=== PATIENT | male | born 1995 | race Two or more races ===

== ENCOUNTER 2017-04-30 16:21 | Emergency (ER) | payer BC ==
[~2017-04-30] VITALS: Ht 185.4 cm; Wt 133.8 kg
[2017-04-30 17:27] LABS: Basophils # (auto) 0.1 uL; Basophils % (auto) 0.5 % (0.0-2.0); Eosinophils # (auto) 0.1 uL; Hematocrit 44.6 % (41.0-53.0); Lymphocytes # (auto) 2.7 uL; Lymphocytes % (auto) 25.4 % (10.0-50.0); Mean Corpuscular Hemoglobin 30.3 pg (28.0-32.0); Mean Corpuscular Hgb Conc. 33.6 g/dL (32.0-36.0); Mean Platelet Volume 9.7 fL (6.9-10.8); Monocytes % (auto) 9.9 % (0.0-12.0); Neutrophils # (auto) 6.7 uL; Neutrophils % (auto) 63.2 % (37.0-80.0); Nucleated Red Blood Cells % 0.1 %; Platelet Count (auto) 267 10^3/uL (140-450); Red Cell Distribution Width 13.5 % (11.8-14.3); White Blood Cell 10.6 10^3/uL (4.4-10.8)
[2017-04-30 17:47] LABS: BUN/Creatinine Ratio 16.3; Bilirubin, Total 0.3 mg/dL (0.2-1.0); Calcium 8.7 mg/dL (8.5-10.1); Potassium 3.7 mmol/L (3.5-5.1); Total Protein 8.1 g/dL (6.4-8.2)
[2017-04-30 19:18] VITALS: BP 128/83
== END 2017-04-30 20:13 | disposition home or self-care (01) ==
LOC: ER 16:21
DX: R07.89 Other chest pain (principal); F12.10 Cannabis abuse, uncomplicated
CPT/HCPCS: 36415; 71020; 80053; 84443; 84484; 85025; 93005

== ENCOUNTER → 2017-12-26 | Outpatient (CLI) | payer BC | END | disposition home or self-care (01) | LOC: XYW 10:34 | PROVIDERS: ATTEND Internal Medicine | DX: R07.9 Chest pain, unspecified (principal) | CPT/HCPCS: 93306 ==

== ENCOUNTER → 2018-10-30 | Outpatient (CLI) | payer BC ==
[2018-10-30 12:10] LABS: Basophils # (auto) 0.1 uL; Basophils % (auto) 0.5 % (0.0-2.0); Eosinophils # (auto) 0.2 uL; Eosinophils % (auto) 1.7 % (0.0-7.0); Hematocrit 47.6 % (41.0-53.0); Hemoglobin 15.7 g/dL (13.5-17.5); Lymphocytes # (auto) 2.3 uL; Lymphocytes % (auto) 17.8 % (10.0-50.0); Mean Corpuscular Hemoglobin 29.2 pg (28.0-32.0); Mean Corpuscular Hgb Conc. 33.1 g/dL (32.0-36.0); Mean Corpuscular Volume 88.2 fL (80.0-100.0); Monocytes # (auto) 0.6 uL; Monocytes % (auto) 4.4 % (0.0-12.0); Neutrophils # (auto) 9.7 uL; Neutrophils % (auto) 75.6 % (37.0-80.0); Nucleated Red Blood Cells % 0.1 %; Platelet Count (auto) 295 10^3/uL (140-450); Red Blood Cells 5.39 10^6/uL (4.5-5.90); White Blood Cell 12.8 10^3/uL (4.4-10.8)
[2018-10-30 12:16] LABS: Albumin 3.9 g/dL (3.4-5.0); Calcium 9.5 mg/dL (8.5-10.1); Potassium 3.9 mmol/L (3.5-5.1)
[2018-10-30 12:23] LABS: BUN/Creatinine Ratio 15.1; Bilirubin, Total 0.4 mg/dL (0.2-1.0); Total Protein 8.9 g/dL (6.4-8.2)
== END | disposition home or self-care (01) ==
LOC: LAB 11:05
PROVIDERS: ATTEND Internal Medicine
DX: Z00.00 Encounter for general adult medical examination without abnormal findings (principal); E66.01 Morbid (severe) obesity due to excess calories; K21.0 Gastro-esophageal reflux disease with esophagitis; R94.5 Abnormal results of liver function studies
CPT/HCPCS: 36415; 80053; 80061; 83036; 84443; 85025; 86695; 86696

== ENCOUNTER 2019-12-06 21:37 | Emergency (ER) | payer BC, MEDICAID ==
[~2019-12-06] VITALS: Ht 188 cm; Wt 163.3 kg
[2019-12-06] MEDS ORDERED: HYDROmorphone HCL 2 MG/ML VL IV ONE (22:30)
[2019-12-07] MEDS ORDERED: HYDROmorphone HCL 2 MG/ML VL IV ONE (00:30)
[2019-12-07 02:07] LABS: Basophils # (auto) 0 10 ^3/uL (0-0.2); Basophils % (auto) 0.2 % (0.0-2.0); Eosinophils # (auto) 0 10 ^3/uL (0-0.8); Hematocrit 41.9 % (41.0-53.0); Hemoglobin 13.8 g/dL (13.5-17.5); Lymphocytes # (auto) 1.1 10 ^3/uL (0.4-5.4); Lymphocytes % (auto) 5.2 % (10.0-50.0); Mean Corpuscular Hemoglobin 28.9 pg (28.0-32.0); Mean Corpuscular Volume 87.7 fL (80.0-100.0); Monocytes % (auto) 4.9 % (0.0-12.0); Neutrophils # (auto) 18.6 10 ^3/uL (1.6-8.6); Neutrophils % (auto) 89.7 % (37.0-80.0); Platelet Count (auto) 215 10^3/uL (140-450); Red Blood Cells 4.78 10^6/uL (4.5-5.90); Red Cell Distribution Width 14.3 % (11.8-14.3); White Blood Cell 20.7 10^3/uL (4.4-10.8)
[2019-12-07] MEDS ORDERED: LORazepam 2MG/ML-1ML VIAL IV ONE (02:15)
[2019-12-07] MEDS ORDERED: ONDANSETRON HCL 4 MG/2 ML VIAL IV ONE (02:15)
[2019-12-07] MEDS ORDERED: MORPHINE SULFATE 4 MG/ML SYR/VIAL IV ONE ×2 (02:15→07:15)
[2019-12-07 02:28] LABS: Albumin 3.4 g/dL (3.4-5.0); BUN/Creatinine Ratio 15.6; Calcium 8.4 mg/dL (8.5-10.1)
[2019-12-07 02:30] LABS: INR 1.13 (0.9-1.15); Partial Thromboplastin Time 29.9 sec (23.64-32.05)
[2019-12-07 02:37] LABS: Bilirubin, Total 0.3 mg/dL (0.2-1.0); Total Protein 7.5 g/dL (6.4-8.2)
[2019-12-07 07:15] VITALS: BP 143/85
== END 2019-12-07 07:40 | disposition short-term general hospital (02) ==
LOC: EDBD 21:37 → ER 21:37
DX: S82.832A Other fracture of upper and lower end of left fibula, initial encounter for closed fracture (principal); S82.302A Unspecified fracture of lower end of left tibia, initial encounter for closed fracture; S20.212A Contusion of left front wall of thorax, initial encounter; V86.59XA Driver of other special all-terrain or other off-road motor vehicle injured in nontraffic accident, initial encounter; Y93.I9 Activity, other involving external motion; Y92.410 Unspecified street and highway as the place of occurrence of the external cause; Y99.8 Other external cause status
CPT/HCPCS: 36415; 72128; 72131; 73600; 80053; 85025; 85610; 85730; 96374; 96375; 96376; 99285; J1170; J7030; 71250; J2405

== ENCOUNTER 2020-08-31 17:54 | Inpatient (IN) | payer BC, MEDICAID ==
[~2020-08-31] VITALS: Ht 185.4 cm; Wt 105.5 kg
[2020-08-31] MEDS ORDERED: ACETAMINOPHEN 500 MG TAB PO PRN (18:30)
[2020-08-31] MEDS ORDERED: MORPHINE SULF INJ 2 MG/ML SYRINGE 1ML IV PRN (18:30)
[2020-08-31] MEDS ORDERED: VANCOMYCIN PER PHARMACY 0 MG IV SCH (18:30)
[2020-08-31] MEDS ORDERED: VANCOMYCIN 1GM/250ML 250 ML IV ONE (20:00)
[2020-08-31 22:00] VITALS: BP 129/68
[2020-08-31] MEDS: PIPERACILLIN-TAZOB 3.375GM 100 ML IV SCH (23:45)
[2020-09-01] MEDS: HYDROcodone-ACET 5/325MG TAB PO PRN ×3 (04:51→18:35)
[2020-09-01 05:00] VITALS: BP 148/85
[2020-09-01 05:21] LABS: Basophils # (auto) 0.1 10 ^3/uL (0-0.2); Basophils % (auto) 0.6 % (0.0-2.0); Eosinophils # (auto) 0.3 10 ^3/uL (0-0.8); Eosinophils % (auto) 2.9 % (0.0-7.0); Hematocrit 40.7 % (41.0-53.0); Hemoglobin 13.4 g/dL (13.5-17.5); Lymphocytes # (auto) 2.1 10 ^3/uL (0.4-5.4); Lymphocytes % (auto) 17.6 % (10.0-50.0); Mean Corpuscular Hemoglobin 28.1 pg (28.0-32.0); Mean Corpuscular Hgb Conc. 32.9 g/dL (32.0-36.0); Mean Corpuscular Volume 85.4 fL (80.0-100.0); Monocytes % (auto) 8.5 % (0.0-12.0); Neutrophils # (auto) 8.2 10 ^3/uL (1.6-8.6); Neutrophils % (auto) 70.4 % (37.0-80.0); Nucleated Red Blood Cells % 0.1 %; Platelet Count (auto) 201 10^3/uL (140-450); Red Blood Cells 4.77 10^6/uL (4.5-5.90); Red Cell Distribution Width 15.9 % (11.8-14.3); White Blood Cell 11.7 10^3/uL (4.4-10.8)
[2020-09-01] MEDS: PIPERACILLIN-TAZOB 3.375GM 100 ML IV SCH ×4 (05:32→23:36)
[2020-09-01 08:30] LABS: INR 1.12 (0.9-1.15)
[2020-09-01 08:44] VITALS: BP 158/71
[2020-09-01 12:01] LABS: Cholesterol 138 mg/dL (< 200); HDL Cholesterol 37 mg/dL (40-59); LDL Cholesterol 84 mg/dL (< 100); Triglycerides 144 mg/dL (< 150)
[2020-09-01 12:29] VITALS: BP 141/72
[2020-09-01] MEDS: VANCOMYCIN 2,000 MG in D5W 5% 500 ML IV SCH (15:50)
[2020-09-01] MEDS ORDERED: LIDOCAINE 1% (LOCAL ANESTH.) PF 5ml SDV ID ONE (16:15)
[2020-09-01 16:22] VITALS: BP 157/77
[2020-09-01] MEDS: ERGOCALCIFEROL 50,000 UNIT(1.25MG) CAP PO SCH (18:30)
[2020-09-01 22:00] VITALS: BP 147/74
[2020-09-01] MEDS: SODIUM CHLOR 0.9% PF (SALINE LOCK) 10ML VIAL/SYR IV SCH (22:12)
[2020-09-01] MEDS: ONDANSETRON HCL 4 MG/2 ML VIAL IV PRN (23:50)
[2020-09-02] MEDS: VANCOMYCIN 2,000 MG in D5W 5% 500 ML IV SCH ×2 (03:12→16:10)
[2020-09-02 05:00] VITALS: BP 128/95
[2020-09-02] MEDS: PIPERACILLIN-TAZOB 3.375GM 100 ML IV SCH ×3 (06:39→17:54)
[2020-09-02 08:43] VITALS: BP 145/72
[2020-09-02] MEDS: ENOXAPARIN SOD 40 MG/0.4 ML SYRINGE SC SCH (10:53)
[2020-09-02] MEDS: SODIUM CHLOR 0.9% PF (SALINE LOCK) 10ML VIAL/SYR IV SCH ×2 (10:53→22:00)
[2020-09-02 12:38] VITALS: BP 143/93
[2020-09-02] MEDS: HYDROcodone-ACET 5/325MG TAB PO PRN (13:03)
[2020-09-02 16:35] VITALS: BP 141/81
[2020-09-02 22:00] VITALS: BP 127/74
[2020-09-03] MEDS: PIPERACILLIN-TAZOB 3.375GM 100 ML IV SCH ×3 (00:08→11:50)
[2020-09-03] MEDS: VANCOMYCIN 2,000 MG in D5W 5% 500 ML IV SCH (02:55)
[2020-09-03] MEDS: ONDANSETRON HCL 4 MG/2 ML VIAL IV PRN ×2 (04:26→15:34)
[2020-09-03 05:00] VITALS: BP 138/86
[2020-09-03 06:35] LABS: Potassium 4.2 mmol/L (3.5-5.1)
[2020-09-03 06:36] LABS: Hematocrit 40.9 % (41.0-53.0); Hemoglobin 13.4 g/dL (13.5-17.5)
[2020-09-03 06:49] LABS: BUN/Creatinine Ratio 10.5; Calcium 8.3 mg/dL (8.5-10.1)
[2020-09-03 08:00] VITALS: BP 147/74
[2020-09-03] MEDS: SODIUM CHLORIDE 0.9% 1,000 ML IV SCH ×2 (08:32→21:50)
[2020-09-03] MEDS: ENOXAPARIN SOD 40 MG/0.4 ML SYRINGE SC SCH (08:32)
[2020-09-03] MEDS: SODIUM CHLOR 0.9% PF (SALINE LOCK) 10ML VIAL/SYR IV SCH ×2 (08:32→22:00)
[2020-09-03 12:00] VITALS: BP 134/80
[2020-09-03] MEDS: CEFEPIME 2 GM in SODIUM CHL 0.9% 50 ML IV SCH ×2 (14:30→22:00)
[2020-09-03 14:58] LABS: Urine WBC None Seen /hpf (0 - 3)
[2020-09-03 15:24] LABS: Urine Bacteria FEW /hpf (None Seen); Urine Blood TRACE /uL (Negative); Urine Specific Gravity 1.005 (1.001-1.035)
[2020-09-03 15:39] LABS: Protein, Urine 15.8 mg/dL (0.0-11.9)
[2020-09-03] MEDS: LINEZOLID 600MG/300ML 300 ML IV SCH (20:11)
[2020-09-03 22:16] VITALS: BP 145/79
[2020-09-04] MEDS: ONDANSETRON HCL 4 MG/2 ML VIAL IV PRN ×3 (00:09→14:50)
[2020-09-04 05:02] VITALS: BP 133/71
[2020-09-04] MEDS: CEFEPIME 2 GM in SODIUM CHL 0.9% 50 ML IV SCH (06:10)
[2020-09-04 07:27] LABS: Potassium 4.4 mmol/L (3.5-5.1)
[2020-09-04 07:38] LABS: BUN/Creatinine Ratio 9.8; Magnesium 2.6 mg/dL (1.6-2.6)
[2020-09-04 08:00] VITALS: BP 133/81
[2020-09-04] MEDS: LINEZOLID 600MG/300ML 300 ML IV SCH ×3 (08:42→23:10)
[2020-09-04] MEDS: ENOXAPARIN SOD 40 MG/0.4 ML SYRINGE SC SCH (08:43)
[2020-09-04] MEDS: SODIUM CHLOR 0.9% PF (SALINE LOCK) 10ML VIAL/SYR IV SCH ×2 (08:43→22:00)
[2020-09-04] MEDS: FLORASTOR (S. BOULARDII) 250 MG CAP PO SCH (08:43)
[2020-09-04] MEDS: SODIUM CHLORIDE 0.9% 1,000 ML IV SCH (08:44)
[2020-09-04] MEDS: HYDROcodone-ACET 5/325MG TAB PO PRN (09:15)
[2020-09-04] MEDS ORDERED: CALCIUM ACETATE 667 MG CAP PO ONE (10:30)
[2020-09-04 12:00] VITALS: BP 141/67
[2020-09-04 16:00] VITALS: BP 152/69
[2020-09-04] MEDS: CEFEPIME 1 GM in SODIUM CHL 0.9% 50 ML IV SCH (18:01)
[2020-09-04 22:00] VITALS: BP 133/75
[2020-09-05] MEDS: SODIUM CHLORIDE 0.9% 1,000 ML IV SCH ×3 (00:30→21:30)
[2020-09-05] MEDS: ONDANSETRON HCL 4 MG/2 ML VIAL IV PRN ×2 (01:16→23:11)
[2020-09-05 05:00] VITALS: BP 132/74
[2020-09-05] MEDS: CEFEPIME 1 GM in SODIUM CHL 0.9% 50 ML IV SCH ×2 (05:36→18:53)
[2020-09-05 07:52] LABS: BUN/Creatinine Ratio 10.2; Calcium 8.2 mg/dL (8.5-10.1); Magnesium 2.5 mg/dL (1.6-2.6); Phosphorus 7.8 mg/dL (2.5-4.90); Potassium 4.5 mmol/L (3.5-5.1)
[2020-09-05 08:30] VITALS: BP 152/83
[2020-09-05] MEDS: FLORASTOR (S. BOULARDII) 250 MG CAP PO SCH (10:19)
[2020-09-05] MEDS: ENOXAPARIN SOD 40 MG/0.4 ML SYRINGE SC SCH (10:19)
[2020-09-05] MEDS: SODIUM CHLOR 0.9% PF (SALINE LOCK) 10ML VIAL/SYR IV SCH ×2 (10:20→21:34)
[2020-09-05] MEDS: LINEZOLID 600MG/300ML 300 ML IV SCH ×2 (10:51→22:35)
[2020-09-05 12:30] VITALS: BP 136/82
[2020-09-05 16:53] VITALS: BP 158/89
[2020-09-05 22:16] VITALS: BP 153/83
[2020-09-06 05:15] VITALS: BP 153/83
[2020-09-06 06:02] LABS: Basophils # (auto) 0.1 10 ^3/uL (0-0.2); Basophils % (auto) 0.5 % (0.0-2.0); Eosinophils # (auto) 0.3 10 ^3/uL (0-0.8); Eosinophils % (auto) 2.3 % (0.0-7.0); Hematocrit 37.5 % (41.0-53.0); Hemoglobin 12.4 g/dL (13.5-17.5); Lymphocytes # (auto) 1.5 10 ^3/uL (0.4-5.4); Lymphocytes % (auto) 11.3 % (10.0-50.0); Mean Corpuscular Hemoglobin 28.2 pg (28.0-32.0); Mean Corpuscular Hgb Conc. 33.2 g/dL (32.0-36.0); Monocytes # (auto) 1.3 10 ^3/uL (0-1.3); Monocytes % (auto) 9.9 % (0.0-12.0); Neutrophils # (auto) 10.1 10 ^3/uL (1.6-8.6); Nucleated Red Blood Cells % 0.1 %; Platelet Count (auto) 196 10^3/uL (140-450); Red Cell Distribution Width 15.1 % (11.8-14.3); White Blood Cell 13.2 10^3/uL (4.4-10.8)
[2020-09-06] MEDS: CEFEPIME 1 GM in SODIUM CHL 0.9% 50 ML IV SCH ×2 (06:21→17:25)
[2020-09-06 06:24] LABS: BUN/Creatinine Ratio 10.7; Calcium 8.2 mg/dL (8.5-10.1); Potassium 4.8 mmol/L (3.5-5.1)
[2020-09-06 08:52] VITALS: BP 160/69
[2020-09-06] MEDS: FLORASTOR (S. BOULARDII) 250 MG CAP PO SCH (09:04)
[2020-09-06] MEDS: ENOXAPARIN SOD 40 MG/0.4 ML SYRINGE SC SCH (09:05)
[2020-09-06 09:08] LABS: Urine WBC None Seen /hpf (0 - 3)
[2020-09-06 09:23] LABS: Urine Bacteria NONE SEEN /hpf (None Seen); Urine Blood TRACE /uL (Negative); Urine Specific Gravity 1.005 (1.001-1.035)
[2020-09-06] MEDS: HYDROcodone-ACET 5/325MG TAB PO PRN (10:52)
[2020-09-06] MEDS: ONDANSETRON HCL 4 MG/2 ML VIAL IV PRN ×2 (10:53→17:35)
[2020-09-06] MEDS: LINEZOLID 600MG/300ML 300 ML IV SCH ×2 (11:04→22:18)
[2020-09-06] MEDS: SODIUM CHLOR 0.9% PF (SALINE LOCK) 10ML VIAL/SYR IV SCH ×2 (11:04→21:31)
[2020-09-06] MEDS: SODIUM CHLORIDE 0.9% 1,000 ML IV SCH ×2 (11:04→18:35)
[2020-09-06 12:35] VITALS: BP 165/104
[2020-09-06 16:39] VITALS: BP 126/86
[2020-09-06] MEDS ORDERED: amLODIPine BESYLATE 5 MG TAB PO ONE (18:00)
[2020-09-06 20:00] VITALS: BP 138/78
[2020-09-06 21:36] VITALS: BP 138/78
[2020-09-07] MEDS: SODIUM CHLORIDE 0.9% 1,000 ML IV SCH ×2 (03:09→10:47)
[2020-09-07] MEDS: ONDANSETRON HCL 4 MG/2 ML VIAL IV PRN ×2 (03:57→23:31)
[2020-09-07 05:44] VITALS: BP 138/87
[2020-09-07] MEDS: CEFEPIME 1 GM in SODIUM CHL 0.9% 50 ML IV SCH (06:01)
[2020-09-07 07:17] LABS: Potassium 4.2 mmol/L (3.5-5.1)
[2020-09-07 07:22] LABS: BUN/Creatinine Ratio 11.9
[2020-09-07 08:48] VITALS: BP 150/86
[2020-09-07] MEDS: FLORASTOR (S. BOULARDII) 250 MG CAP PO SCH (10:46)
[2020-09-07] MEDS: ENOXAPARIN SOD 40 MG/0.4 ML SYRINGE SC SCH (10:47)
[2020-09-07] MEDS: SODIUM CHLOR 0.9% PF (SALINE LOCK) 10ML VIAL/SYR IV SCH ×2 (10:47→22:55)
[2020-09-07] MEDS: LINEZOLID 600MG/300ML 300 ML IV SCH ×2 (10:48→22:55)
[2020-09-07] MEDS: amLODIPine BESYLATE 5 MG TAB PO SCH (12:14)
[2020-09-07 13:00] VITALS: BP 116/74
[2020-09-07 16:48] VITALS: BP 151/83
[2020-09-07 20:00] VITALS: BP 139/86
[2020-09-07 22:00] VITALS: BP 139/86
[2020-09-08] MEDS: HYDROcodone-ACET 5/325MG TAB PO PRN (00:20)
[2020-09-08 05:07] VITALS: BP 138/98
[2020-09-08] MEDS ORDERED: CEFEPIME 1 GM in SODIUM CHL 0.9% 50 ML IV SCH (06:00)
[2020-09-08 06:07] LABS: Basophils # (auto) 0.1 10 ^3/uL (0-0.2); Basophils % (auto) 0.7 % (0.0-2.0); Eosinophils # (auto) 0.4 10 ^3/uL (0-0.8); Eosinophils % (auto) 2.9 % (0.0-7.0); Hematocrit 43.3 % (41.0-53.0); Hemoglobin 14.1 g/dL (13.5-17.5); Lymphocytes # (auto) 1.7 10 ^3/uL (0.4-5.4); Lymphocytes % (auto) 14.1 % (10.0-50.0); Mean Corpuscular Hemoglobin 28.3 pg (28.0-32.0); Mean Corpuscular Hgb Conc. 32.6 g/dL (32.0-36.0); Monocytes # (auto) 0.8 10 ^3/uL (0-1.3); Monocytes % (auto) 6.6 % (0.0-12.0); Neutrophils # (auto) 9.4 10 ^3/uL (1.6-8.6); Neutrophils % (auto) 75.7 % (37.0-80.0); Platelet Count (auto) 251 10^3/uL (140-450); Red Blood Cells 4.98 10^6/uL (4.5-5.90); Red Cell Distribution Width 15.3 % (11.8-14.3); White Blood Cell 12.4 10^3/uL (4.4-10.8)
[2020-09-08 06:11] LABS: BUN/Creatinine Ratio 12.6; Calcium 8.7 mg/dL (8.5-10.1); Potassium 5.2 mmol/L (3.5-5.1)
[2020-09-08] MEDS: SODIUM CHLORIDE 0.9% 1,000 ML IV SCH (07:10)
[2020-09-08 08:00] VITALS: BP 126/73
[2020-09-08 09:00] VITALS: BP 126/73
[2020-09-08] MEDS: SODIUM CHLOR 0.9% PF (SALINE LOCK) 10ML VIAL/SYR IV SCH ×2 (10:00→22:57)
[2020-09-08] MEDS ORDERED: ENOXAPARIN SOD 30 MG/0.3 ML SYRINGE SC SCH (10:00)
[2020-09-08] MEDS: amLODIPine BESYLATE 5 MG TAB PO SCH (10:50)
[2020-09-08] MEDS: FLORASTOR (S. BOULARDII) 250 MG CAP PO SCH (10:51)
[2020-09-08] MEDS: LINEZOLID 600MG/300ML 300 ML IV SCH ×2 (10:51→22:58)
[2020-09-08 13:48] VITALS: BP 117/65
[2020-09-08] MEDS: ERGOCALCIFEROL 50,000 UNIT(1.25MG) CAP PO SCH (14:29)
[2020-09-08 16:47] VITALS: BP 139/68
[2020-09-08] MEDS: CEFEPIME 1 GM in SODIUM CHL 0.9% 50 ML IV SCH (18:15)
[2020-09-08 22:00] VITALS: BP 152/84
[2020-09-09] MEDS: SODIUM CHLORIDE 0.9% 1,000 ML IV SCH ×2 (01:22→18:01)
[2020-09-09 05:00] VITALS: BP 133/86
[2020-09-09] MEDS: CEFEPIME 1 GM in SODIUM CHL 0.9% 50 ML IV SCH (05:51)
[2020-09-09] MEDS ORDERED: OXYTOCIN 10UNIT/ML 1ML VIAL ONE (08:04)
[2020-09-09 08:13] LABS: BUN/Creatinine Ratio 13.9; Calcium 9.3 mg/dL (8.5-10.1); Potassium 4.5 mmol/L (3.5-5.1)
[2020-09-09 08:15] VITALS: BP 154/93
[2020-09-09 08:43] VITALS: BP 154/93
[2020-09-09] MEDS: amLODIPine BESYLATE 5 MG TAB PO SCH (10:42)
[2020-09-09] MEDS: SODIUM CHLOR 0.9% PF (SALINE LOCK) 10ML VIAL/SYR IV SCH ×2 (10:42→22:37)
[2020-09-09] MEDS: FLORASTOR (S. BOULARDII) 250 MG CAP PO SCH (10:42)
[2020-09-09] MEDS: LINEZOLID 600MG/300ML 300 ML IV SCH ×2 (10:43→22:37)
[2020-09-09] MEDS: ENOXAPARIN SOD 40 MG/0.4 ML SYRINGE SC SCH (10:43)
[2020-09-09 12:46] VITALS: BP 151/66
[2020-09-09] MEDS: ONDANSETRON HCL 4 MG/2 ML VIAL IV PRN (15:29)
[2020-09-09 16:32] VITALS: BP 122/74
[2020-09-09] MEDS: CEFEPIME 2 GM in SODIUM CHL 0.9% 50 ML IV SCH (18:02)
[2020-09-09 22:00] VITALS: BP 119/83
[2020-09-10 05:00] VITALS: BP 146/80
[2020-09-10] MEDS: SODIUM CHLORIDE 0.9% 1,000 ML IV SCH (06:53)
[2020-09-10] MEDS: CEFEPIME 2 GM in SODIUM CHL 0.9% 50 ML IV SCH (06:53)
[2020-09-10 07:54] VITALS: BP 129/73
[2020-09-10 08:15] VITALS: BP 129/73
[2020-09-10] MEDS: FLORASTOR (S. BOULARDII) 250 MG CAP PO SCH (10:02)
[2020-09-10] MEDS: SODIUM CHLOR 0.9% PF (SALINE LOCK) 10ML VIAL/SYR IV SCH (10:02)
[2020-09-10] MEDS: amLODIPine BESYLATE 5 MG TAB PO SCH (10:03)
[2020-09-10] MEDS: ENOXAPARIN SOD 40 MG/0.4 ML SYRINGE SC SCH (10:03)
[2020-09-10 10:35] LABS: BUN/Creatinine Ratio 16.1; Calcium 9.3 mg/dL (8.5-10.1); Potassium 4.8 mmol/L (3.5-5.1)
[2020-09-10] MEDS: LINEZOLID 600MG/300ML 300 ML IV SCH (10:57)
[2020-09-10 12:12] VITALS: BP 151/66
[2020-09-10 12:30] VITALS: BP 157/76
== END 2020-09-10 15:40 | disposition home or self-care (01) | DRG 539 ==
LOC: CENTRAL 17:54
PROVIDERS: ADMIT Nurse Practitioner Acute Care; ATTEND Internal Medicine
PROC: 05HY33Z Insertion of Infusion Device into Upper Vein, Percutaneous Approach (ICD-10-PCS; principal; 2020-09-01)
DX: M86.8X6 Other osteomyelitis, lower leg (principal); N17.0 Acute kidney failure with tubular necrosis; L03.116 Cellulitis of left lower limb; E66.01 Morbid (severe) obesity due to excess calories; R73.03 Prediabetes; T36.8X5A Adverse effect of other systemic antibiotics, initial encounter; Z68.30 Body mass index [BMI] 30.0-30.9, adult
CPT/HCPCS: 36415; 36569; 73610; 76775; 80048; 80061; 80202; 81001; 82306; 82565; 82570; 83036; 83735; 84100; 84156; 84300; 85014; 85018; 85025; 85610; 87081; G0378; J2405; J2543; J7060

== ENCOUNTER → 2020-09-12 | Outpatient (CLI) | payer BC, MEDICAID ==
[2020-09-12 17:07] LABS: BUN/Creatinine Ratio 18.1; Potassium 5.2 mmol/L (3.5-5.1)
[2020-09-12 17:09] LABS: Basophils # (auto) 0.1 10 ^3/uL (0-0.2); Eosinophils # (auto) 0.4 10 ^3/uL (0-0.8); Hematocrit 42.1 % (41.0-53.0); Hemoglobin 13.8 g/dL (13.5-17.5); Lymphocytes # (auto) 2.5 10 ^3/uL (0.4-5.4); Lymphocytes % (auto) 17.9 % (10.0-50.0); Mean Corpuscular Hemoglobin 27.9 pg (28.0-32.0); Mean Corpuscular Hgb Conc. 32.7 g/dL (32.0-36.0); Mean Corpuscular Volume 85.3 fL (80.0-100.0); Monocytes % (auto) 7.3 % (0.0-12.0); Neutrophils # (auto) 9.8 10 ^3/uL (1.6-8.6); Neutrophils % (auto) 70.8 % (37.0-80.0); Nucleated Red Blood Cells % 0.1 %; Platelet Count (auto) 292 10^3/uL (140-450); Red Blood Cells 4.93 10^6/uL (4.5-5.90); White Blood Cell 13.9 10^3/uL (4.4-10.8)
== END | disposition home or self-care (01) ==
LOC: LAB 16:20
PROVIDERS: ATTEND Internal Medicine
DX: I21.9 Acute myocardial infarction, unspecified (principal)
CPT/HCPCS: 36415; 80048; 85025

== ENCOUNTER → 2020-10-19 | Outpatient (CLI) | payer BC, MEDICAID ==
[2020-10-19 16:57] LABS: Basophils # (auto) 0 10 ^3/uL (0-0.2); Basophils % (auto) 0.3 % (0.0-2.0); Eosinophils # (auto) 0.2 10 ^3/uL (0-0.8); Eosinophils % (auto) 1.7 % (0.0-7.0); Hematocrit 40.1 % (41.0-53.0); Hemoglobin 13.3 g/dL (13.5-17.5); Lymphocytes # (auto) 1.9 10 ^3/uL (0.4-5.4); Lymphocytes % (auto) 16.6 % (10.0-50.0); Mean Corpuscular Hemoglobin 28.6 pg (28.0-32.0); Mean Corpuscular Hgb Conc. 33.1 g/dL (32.0-36.0); Mean Corpuscular Volume 86.4 fL (80.0-100.0); Monocytes # (auto) 0.5 10 ^3/uL (0-1.3); Monocytes % (auto) 4.3 % (0.0-12.0); Neutrophils # (auto) 8.8 10 ^3/uL (1.6-8.6); Neutrophils % (auto) 77.1 % (37.0-80.0); Nucleated Red Blood Cells % 0.1 %; Platelet Count (auto) 244 10^3/uL (140-450); Red Blood Cells 4.64 10^6/uL (4.5-5.90); Red Cell Distribution Width 16.5 % (11.8-14.3); White Blood Cell 11.4 10^3/uL (4.4-10.8)
[2020-10-19 17:19] LABS: BUN/Creatinine Ratio 13.7; Calcium 8.5 mg/dL (8.5-10.1); Potassium 4.1 mmol/L (3.5-5.1)
== END | disposition home or self-care (01) ==
LOC: LAB 16:34
PROVIDERS: ATTEND Internal Medicine
DX: I10 Essential (primary) hypertension (principal); E55.9 Vitamin D deficiency, unspecified
CPT/HCPCS: 36415; 80048; 82306; 85025

== ENCOUNTER 2020-10-26 17:36 | Emergency (ER) | payer BC, MEDICAID ==
[~2020-10-26] VITALS: Ht 188 cm; Wt 181.4 kg
[2020-10-27 02:15] VITALS: BP 121/65
== END 2020-10-27 03:06 | disposition home or self-care (01) ==
LOC: ER 17:36
DX: T81.30XA Disruption of wound, unspecified, initial encounter (principal); F12.10 Cannabis abuse, uncomplicated; X58.XXXA Exposure to other specified factors, initial encounter

== ENCOUNTER → 2020-12-14 | Outpatient (CLI) | payer BC, MEDICAID | END | disposition home or self-care (01) | LOC: LAB 14:56 | DX: S82.402A Unspecified fracture of shaft of left fibula, initial encounter for closed fracture (principal); S82.202A Unspecified fracture of shaft of left tibia, initial encounter for closed fracture; X58.XXXA Exposure to other specified factors, initial encounter; Y93.89 Activity, other specified; Y92.89 Other specified places as the place of occurrence of the external cause; Y99.8 Other external cause status | CPT/HCPCS: 36415; 82565; 84520 ==

== ENCOUNTER 2021-02-20 15:30 | Emergency (ER) | payer BC, MEDICAID ==
[~2021-02-20] VITALS: Ht 185.4 cm; Wt 181.4 kg
[2021-02-20] MEDS ORDERED: CATHFLO ACTIVASE (ALTEPLASE) 2 MG VIAL IV ONE (16:45)
[2021-02-20 16:47] LABS: Basophils # (auto) 0.1 10 ^3/uL (0-0.2); Eosinophils # (auto) 0.2 10 ^3/uL (0-0.8); Hemoglobin 12.3 g/dL (13.5-17.5); Lymphocytes # (auto) 1.6 10 ^3/uL (0.4-5.4); Lymphocytes % (auto) 15.1 % (10.0-50.0); Nucleated Red Blood Cells % 0.1 %; Red Cell Distribution Width 16.6 % (11.8-14.3)
[2021-02-20 16:48] LABS: Basophils % (auto) 0.5 % (0.0-2.0); Hematocrit 39.3 % (41.0-53.0); Mean Corpuscular Hemoglobin 25.3 pg (28.0-32.0); Mean Corpuscular Hgb Conc. 31.2 g/dL (32.0-36.0); Mean Corpuscular Volume 81.1 fL (80.0-100.0); Monocytes # (auto) 0.8 10 ^3/uL (0-1.3); Monocytes % (auto) 7.4 % (0.0-12.0); Neutrophils # (auto) 8.2 10 ^3/uL (1.6-8.6); Red Blood Cells 4.85 10^6/uL (4.5-5.90); White Blood Cell 10.9 10^3/uL (4.4-10.8)
[2021-02-20 17:18] LABS: INR 1.11 (0.9-1.15); Partial Thromboplastin Time 28.5 sec (23.6-33.0)
[2021-02-20 17:33] LABS: Calcium 8.3 mg/dL (8.5-10.1); Potassium 4.4 mmol/L (3.5-5.1)
[2021-02-20 17:36] LABS: BUN/Creatinine Ratio 17.3; Bilirubin, Total 0.2 mg/dL (0.2-1.0); Total Protein 7.4 g/dL (6.4-8.2)
[2021-02-20 19:48] VITALS: BP 144/85
== END 2021-02-20 19:54 | disposition home or self-care (01) ==
LOC: ER 15:30
DX: T82.898A Other specified complication of vascular prosthetic devices, implants and grafts, initial encounter (principal); I10 Essential (primary) hypertension
CPT/HCPCS: 36415; 71045; 80053; 85025; 85610; 85730; 96374; 99284; J2997

== ENCOUNTER 2021-02-27 13:44 | Emergency (ER) | payer BC, MEDICAID ==
[~2021-02-27] VITALS: Ht 185.4 cm; Wt 181.4 kg
[2021-02-27 14:31] LABS: Basophils # (auto) 0 10 ^3/uL (0-0.2); Lymphocytes # (auto) 1.8 10 ^3/uL (0.4-5.4); Monocytes # (auto) 0.7 10 ^3/uL (0-1.3)
[2021-02-27 14:35] LABS: Basophils % (auto) 0.2 % (0.0-2.0); Eosinophils # (auto) 0.2 10 ^3/uL (0-0.8); Eosinophils % (auto) 2.2 % (0.0-7.0); Hematocrit 40.2 % (41.0-53.0); Hemoglobin 12.5 g/dL (13.5-17.5); Lymphocytes % (auto) 16.4 % (10.0-50.0); Mean Corpuscular Hemoglobin 25.2 pg (28.0-32.0); Mean Corpuscular Hgb Conc. 31.1 g/dL (32.0-36.0); Mean Corpuscular Volume 81.1 fL (80.0-100.0); Monocytes % (auto) 6.4 % (0.0-12.0); Neutrophils # (auto) 8.1 10 ^3/uL (1.6-8.6); Neutrophils % (auto) 74.8 % (37.0-80.0); Nucleated Red Blood Cells % 0.2 %; Red Blood Cells 4.96 10^6/uL (4.5-5.90); Red Cell Distribution Width 16.4 % (11.8-14.3); White Blood Cell 10.8 10^3/uL (4.4-10.8)
[2021-02-27 15:25] LABS: Albumin 2.8 g/dL (3.4-5.0); BUN/Creatinine Ratio 17.7; Calcium 8.2 mg/dL (8.5-10.1); Magnesium 2.1 mg/dL (1.6-2.6); Potassium 4.2 mmol/L (3.5-5.1)
[2021-02-27 15:34] LABS: Bilirubin, Total 0.3 mg/dL (0.2-1.0); CRP High Sensitivity 2.28 mg/dL (< 0.3); Total Protein 7.4 g/dL (6.4-8.2)
[2021-02-27 18:56] VITALS: BP 148/74
== END 2021-02-27 19:03 | disposition home or self-care (01) ==
LOC: ER 13:44
DX: M79.602 Pain in left arm (principal); I10 Essential (primary) hypertension; F12.10 Cannabis abuse, uncomplicated; Z45.2 Encounter for adjustment and management of vascular access device
CPT/HCPCS: 36415; 71045; 80053; 83605; 83735; 85025; 86141

== ENCOUNTER → 2021-02-27 | Outpatient (CLI) | payer BC, MEDICAID ==
[2021-02-27 13:53] LABS: Eosinophils # (auto) 0.3 10 ^3/uL (0-0.8); Lymphocytes # (auto) 1.9 10 ^3/uL (0.4-5.4); Monocytes # (auto) 0.6 10 ^3/uL (0-1.3); Neutrophils # (auto) 8.6 10 ^3/uL (1.6-8.6); Nucleated Red Blood Cells % 0.1 %
[2021-02-27 13:59] LABS: Basophils # (auto) 0 10 ^3/uL (0-0.2); Basophils % (auto) 0.2 % (0.0-2.0); Eosinophils % (auto) 2.2 % (0.0-7.0); Hematocrit 40.4 % (41.0-53.0); Hemoglobin 12.7 g/dL (13.5-17.5); Lymphocytes % (auto) 16.5 % (10.0-50.0); Mean Corpuscular Hemoglobin 25.3 pg (28.0-32.0); Mean Corpuscular Hgb Conc. 31.4 g/dL (32.0-36.0); Mean Corpuscular Volume 80.5 fL (80.0-100.0); Neutrophils % (auto) 76.1 % (37.0-80.0); Red Blood Cells 5.02 10^6/uL (4.5-5.90); Red Cell Distribution Width 16.2 % (11.8-14.3); White Blood Cell 11.4 10^3/uL (4.4-10.8)
[2021-02-27 14:05] LABS: Calcium 8.3 mg/dL (8.5-10.1)
[2021-02-27 14:15] LABS: BUN/Creatinine Ratio 17.6; Bilirubin, Total 0.4 mg/dL (0.2-1.0); CRP High Sensitivity 2.26 mg/dL (< 0.3); Total Protein 7.6 g/dL (6.4-8.2)
== END | disposition home or self-care (01) ==
LOC: LAB 13:13
PROVIDERS: ATTEND Internal Medicine Nephrology
DX: Z51.81 Encounter for therapeutic drug level monitoring (principal); T84.623A Infection and inflammatory reaction due to internal fixation device of left tibia, initial encounter; Z45.2 Encounter for adjustment and management of vascular access device; X58.XXXA Exposure to other specified factors, initial encounter
CPT/HCPCS: 36415; 80053; 85025; 85652; 86141

== ENCOUNTER → 2021-04-27 | Outpatient (CLI) | payer BC, MEDICAID | END | disposition home or self-care (01) | LOC: LAB 13:22 | PROVIDERS: ATTEND Student in an Organized Health Care Education/Training Program | DX: R73.03 Prediabetes (principal) | CPT/HCPCS: 36415; 83036 ==

== ENCOUNTER → 2023-04-02 | Outpatient (CLI) | payer MEDICAID ==
[2023-04-02 13:01] LABS: Basophils # (auto) 0.1 10 ^3/uL (0-0.2); Basophils % (auto) 0.5 % (0.0-2.0); Eosinophils # (auto) 0.2 10 ^3/uL (0-0.8); Eosinophils % (auto) 1.9 % (0.0-7.0); Hematocrit 45.7 % (41.0-53.0); Hemoglobin 15.3 g/dL (13.5-17.5); Lymphocytes # (auto) 2.1 10 ^3/uL (0.4-5.4); Lymphocytes % (auto) 19.5 % (10.0-50.0); Mean Corpuscular Hgb Conc. 33.4 g/dL (32.0-36.0); Mean Corpuscular Volume 86.9 fL (80.0-100.0); Monocytes % (auto) 9.1 % (0.0-12.0); Neutrophils # (auto) 7.4 10 ^3/uL (1.6-8.6); Nucleated Red Blood Cells % 0.1 %; Red Blood Cells 5.26 10^6/uL (4.5-5.90); Red Cell Distribution Width 15.3 % (11.8-14.3); White Blood Cell 10.7 10^3/uL (4.4-10.8)
[2023-04-02 14:55] LABS: Alanine Aminotransferase 28 U/L (7-40); Albumin 4.3 g/dL (3.2-4.8); Alkaline Phosphatase 132 U/L (46-116); Anion Gap 7 (5-15); Aspartate Aminotransferase 16 U/L (13-40); Bilirubin, Total 0.2 mg/dL (0.2-1.0); Blood Urea Nitrogen 10 mg/dL (9-23); Carbon Dioxide 28 mmol/L (20-30); Chloride 105 mmol/L (98-107); Glucose 91 mg/dL (74-106); Potassium 4.6 mmol/L (3.5-5.1); Sodium 140 mmol/L (136-145)
[2023-04-02 15:27] LABS: BUN/Creatinine Ratio 14.7 (10.0-20.0)
[2023-04-02 15:32] LABS: Total Protein 7.3 g/dL (5.7-8.2)
== END | disposition home or self-care (01) ==
LOC: LAB 12:34
PROVIDERS: ATTEND Nurse Practitioner Family
DX: E66.01 Morbid (severe) obesity due to excess calories (principal); L91.0 Hypertrophic scar; R06.83 Snoring
CPT/HCPCS: 36415; 80053; 85025

== ENCOUNTER → 2024-02-11 | Outpatient (CLI) | payer MEDICAID ==
[2024-02-11 16:19] LABS: Basophils # (auto) 0 10 ^3/uL (0-0.2); Basophils % (auto) 0.5 % (0.0-2.0); Eosinophils # (auto) 0.2 10 ^3/uL (0-0.8); Eosinophils % (auto) 1.7 % (0.0-7.0); Hematocrit 48.3 % (41.0-53.0); Hemoglobin 16.1 g/dL (13.5-17.5); Lymphocytes # (auto) 1.5 10 ^3/uL (0.4-5.4); Lymphocytes % (auto) 15.2 % (10.0-50.0); Mean Corpuscular Hemoglobin 28.6 pg (28.0-32.0); Mean Corpuscular Hgb Conc. 33.4 g/dL (32.0-36.0); Mean Corpuscular Volume 85.7 fL (80.0-100.0); Monocytes # (auto) 0.6 10 ^3/uL (0-1.3); Monocytes % (auto) 5.8 % (0.0-12.0); Neutrophils # (auto) 7.6 10 ^3/uL (1.6-8.6); Neutrophils % (auto) 76.8 % (37.0-80.0); Nucleated Red Blood Cells % 0.1 %; Platelet Count (auto) 243 10^3/uL (140-450); Red Blood Cells 5.64 10^6/uL (4.5-5.90); Red Cell Distribution Width 15.8 % (11.8-14.3); White Blood Cell 9.9 10^3/uL (4.4-10.8)
[2024-02-11 16:46] LABS: Alanine Aminotransferase 18 U/L (7-40); Albumin 4.2 g/dL (3.2-4.8); Alkaline Phosphatase 114 U/L (46-116); Anion Gap 6 (5-15); Aspartate Aminotransferase 12 U/L (13-40); BUN/Creatinine Ratio 10.2 (10.0-20.0); Blood Urea Nitrogen 6 mg/dL (9-23); Calcium 9.1 mg/dL (8.7-10.4); Carbon Dioxide 27 mmol/L (20-31); Chloride 106 mmol/L (98-107); Cholesterol 139 mg/dL (< 200); Glucose 98 mg/dL (74-106); HDL Cholesterol 37 mg/dL (40-59); LDL Cholesterol 100 mg/dL (< 100); Potassium 4.3 mmol/L (3.5-5.1); Sodium 139 mmol/L (136-145); Triglycerides 88 mg/dL (< 150)
[2024-02-11 16:47] LABS: Bilirubin, Total 0.3 mg/dL (0.2-1.0); Total Protein 7.5 g/dL (5.7-8.2)
== END | disposition home or self-care (01) ==
LOC: LAB 15:03
DX: R74.01 Elevation of levels of liver transaminase levels (principal); E66.01 Morbid (severe) obesity due to excess calories; R73.03 Prediabetes
CPT/HCPCS: 36415; 80053; 80061; 82043; 82306; 83036; 84443; 85025

== ENCOUNTER 2025-01-25 15:07 | Outpatient (CLI) | payer MEDICAID | END 2025-01-25 17:00 | disposition home or self-care (01) | LOC: Rad HDHVI 15:07 | PROVIDERS: ATTEND Internal Medicine Cardiovascular Disease | DX: I11.9 Hypertensive heart disease without heart failure (principal) | CPT/HCPCS: 93306 ==

== ENCOUNTER 2025-02-08 14:49 | Outpatient (CLI) | payer MEDICAID ==
[~2025-02-08] VITALS: Ht 185.4 cm; Wt 202.3 kg
[2025-02-08] MEDS ORDERED: DOBUTamine 1000MCG/ML 250 ML IV ONE (14:58)
[2025-02-08] MEDS ORDERED: DOBUTamine 1000MCG/ML 100 ML IV ONE (17:15)
--- NOTE | 2025-02-09 15:04 | DVHSR ---
APPROVED REPORT INDICATION Pre-Op RISK FACTORS Obesity: ECHOCARDIOGRAM Echocardiogram was performed by windshield technician in four stages in quad fashion and compared. Conclusion BASELINE ECHO EF >55% NO SEGMENTAL WALL MOTIN ABN AT 10.20,30 mcg/kg/min OF DOBUTAMINE STRESS ECHO NO SEGENTAL WALL MOTION ABNL NON ISCHEMIC ECG RESPONSE NON ISCHEMIC CLINICAL RESPONSE NON ISCHEMIC DOBUTAMINE STRESS ECHO
== END 2025-02-08 17:00 | disposition home or self-care (01) ==
LOC: Rad HDHVI 14:49
PROVIDERS: ATTEND Internal Medicine Cardiovascular Disease
DX: Z01.810 Encounter for preprocedural cardiovascular examination (principal); I10 Essential (primary) hypertension; R07.89 Other chest pain; R06.02 Shortness of breath; F17.210 Nicotine dependence, cigarettes, uncomplicated
CPT/HCPCS: 93306; J1250